=== PATIENT | male | born 1960 | race African-American/Black ===

== ENCOUNTER 2017-10-25 16:53 | Emergency (ER) | payer BC, OTHER ==
--- NOTE | 2017-10-25 19:24 | UC ---
Hip/Pelvis Pain - HPI Summary HPI Summary: 57 y/o male presents to the urgent car c/o Rt hip pain s/p twisting his hip while sleeping Wednesday night 10/23/2017. Pt reports he was turning and felt a muscle pulled on the lateral side of his hip. Pain is sharp, 7/10 with movement and 0/10 at rest. He has taken Ibuprofen PO 400mg to alleviate symptoms. He had a similar episode about a year ago and was Rx SOMA. He doesn't recall any heavy lifting or trauma. He denies fever, saddle anesthesia, lower back pain, urinary or fecal incontinence, SOB, chest pain, dizziness, abdominal pain, N/V/D , numbness and tingling over the lower extremity. When told about his elevated BP he states that is is on 4 HTN medication which he can't recall the names and hasn't taken them yet. He states he saw his PCP and he has been trying to control his BP. - History Of Current Complaint Hx Obtained From: Patient Onset/Duration: Gradual Onset, Lasting Days - 2 days, Still Present Timing: Intermittent Episodes Lasting: Severity Initially: Moderate Severity Currently: Moderate Pain Intensity: 7 Pain Scale Used: 0-10 Numeric Location: Discrete At: - lateral side of hip Character Of Pain: Aching, Spasmodic Alleviating Factor(s): Rest, OTC Medications Associated Signs And Symptoms: Positive: Negative. Negative: Swelling, Redness , Bruising, Fever, Dizziness, Syncope, Abdominal Pain Related History: Similar Episode/Dx As - muscle spasm - Risk Factors Septic Arthritis Risk Factor: Negative <Mei Covington - Last Filed: 10/27/17 13:32> <Laura Mcallister - Last Filed: 10/28/17 09:38> - History Of Current Complaint Chief Complaint: UCLowerExtremity Stated Complaint: RIGHT HIP PAIN Time Seen by Provider: 10/25/17 18:40 - Allergies/Home Medications Allergies/Adverse Reactions: Allergies Allergy/AdvReac Type Severity Reaction Status Date / Time bee sting Allergy Swelling Uncoded 10/25/17 17:35 cats, rabbits Allergy Sneezing Uncoded 10/25/17 17:35 Home Medications: Home Medications Amlodipine Besylate-Valsartan [Amlodipine Besylate/Valsa 5-160 mg-] 1 tab PO DAILY 10/25/17 [History Confirmed 10/25/17] Atenolol TAB* [Tenormin TAB* 50 MG] 100 mg PO DAILY 10/25/17 [History Confirmed 10/25/17] Atorvastatin* [Lipitor 20 MG*] 20 mg PO 1700 10/25/17 [History Confirmed ] Chlorthalidone TAB* [Hygroton TAB*] 25 mg PO DAILY 10/25/17 [History Confirmed 10/25/17] PMH/Surg Hx/FS Hx/Imm Hx Previously Healthy: Yes Endocrine History: Diabetes Cardiovascular History: Hypertension - Surgical History Surgical History: Yes Surgery Procedure, Year, and Place: Laser eye surgeries 04/24/14, 05/07/20142013 - Family History Known Family History: Positive: Hypertension, Diabetes - Social History Occupation: Disabled Lives: With Family Alcohol Use: None Substance Use Type: None Smoking Status (MU): Never Smoked Tobacco - Immunization History Most Recent Influenza Vaccination: current 2016/2017 <Mei Covington - Last Filed: 10/27/17 13:32> Review of Systems Constitutional: Negative Skin: Negative Eyes: Negative ENT: Negative Respiratory: Negative Cardiovascular: Negative Gastrointestinal: Negative Genitourinary: Negative Motor: Negative Neurovascular: Negative Musculoskeletal: Other: - RT hip pain Neurological: Negative Psychological: Negative Is Patient Immunocompromised?: No All Other Systems Reviewed And Are Negative: Yes <Mei Covington - Last Filed: 10/27/17 13:32> Physical Exam Triage Information Reviewed: Yes Appearance: Well-Appearing, No Pain Distress, Well-Nourished - male Vital Signs: Initial Vital Signs Temp 97.5 F 10/25/17 17:30 Pulse 94 10/25/17 17:30 Resp 18 10/25/17 17:30 BP 185/125 10/25/17 17:30 Pulse Ox 100 10/25/17 17:30 Vital Signs Reviewed: Yes Eyes: Positive: Conjunctiva Clear - left eye blindness ENT: Positive: Normal ENT inspection, Hearing grossly normal, Pharynx normal, TMs normal, Uvula midline Neck: Positive: Supple, Nontender, No Lymphadenopathy Respiratory: Positive: Chest non-tender, Lungs clear, Normal breath sounds, No respiratory distress Cardiovascular: Positive: RRR, No Murmur, Pulses Normal, Brisk Capillary Refill Abdomen Description: Positive: Nontender, No Organomegaly, Soft. Negative: CVA Tenderness (R), CVA Tenderness (L) Bowel Sounds: Positive: Present Musculoskeletal: Positive: Strength Intact, Other: - RT Hip: Pt is able to ambulate without difficulty or assistance, limp, or antalgic gait. No surface trauma, ecchymosis. No erythema, warmth. No deformity, crepitus, or obvious asymmetry of the RT hip. No Tenderness to palaption over the symphysis pubis, ischial bone, trochanter, SI notch, buttocks, quadriceps, femoral triangle, inguinal ligament. Point tenderness on Rt lateral side of the hip belowe the iliac crest. No inguinal lymphadenopathy. FROM limited due to pain. Distal motor and neurovascular status are intact. <Mei Covington - Last Filed: 10/27/17 13:32> Vital Signs: Initial Vital Signs Temp 97.5 F 10/25/17 17:30 Pulse 94 10/25/17 17:30 Resp 18 10/25/17 17:30 BP 185/125 10/25/17 17:30 Pulse Ox 100 10/25/17 17:30 <Laura Mcallister - Last Filed: 10/28/17 09:38> Hip Injury Course/Dx - Course Course Of Treatment: 57 y/o male presents to the urgent car c/o Rt hip pain s/ p twisting his hip while sleeping Wednesday night 10/23/2017. Pt reports he was turning and felt a muscle pulled on the lateral side of his hip. Pain is sharp, 7/10 with movement and 0/10 at rest. He has taken Ibuprofen PO 400mg to alleviate symptoms. He had a similar episode about a year ago and was Rx SOMA. He doesn't recall any heavy lifting or trauma. He denies fever, saddle anesthesia, lower back pain, urinary or fecal incontinence, SOB, chest pain, dizziness, abdominal pain, N/V/D. When told about his elevated BP he states that is is on 4 HTN medication which he can't recall the names and hasn't taken them yet. He states he saw his PCP and he has been trying to control his BP. Hx obtained. Pt with a musckuloskelat pain ans spasm on the lateral side of the RT hip. Pt Rx Prednisone, taper dose, Flexeril PO and tylenol PO to alleviate symptoms. Pt's BP is elevated. Pt is uncompliant with medications. Nurse called pharmacy to update HTN medication. Pt educated on HTN and its risks. Pt seems not to be concern w/ his elevated BP. He states it is usually like that.Pt advised to take his medications and to decrease salt in his diet, monitor BP and f/u with PCP for further management as soon as possible. Pt given Orthopedic referral if not improvement of symptoms in 2-3 days. Pt understood and agreed with D/C instructions. Pt left the clinic A&OX3 and hemodynamically stable. - Differential Dx/Diagnosis Differential Diagnosis/HQI/PQRI: Arthritis, Contusion, Fracture, Sciatica, Sprain, Strain Provider Diagnoses: 1- RT acute hip pain. 2-Muscle spasm. 3- Uncontrolled HTN <Mei Covington - Last Filed: 10/27/17 13:32> Discharge <Mei Covington - Last Filed: 10/27/17 13:32> <Laura Mcallister - Last Filed: 10/28/17 09:38> - Discharge Plan Condition: Stable Disposition: HOME Prescriptions: Acetaminophen TAB* [Tylenol TAB*] 325 mg PO Q6H PRN #30 tab PRN Reason: Pain Cyclobenzaprine TAB* [Flexeril 10 MG TAB*] 10 mg PO TID PRN #15 tab PRN Reason: Spasms - Muscle predniSONE TAB* [Deltasone TAB*] 20 mg PO DAILY #11 tab Patient Education Materials: Low-Sodium Diet (ED), Hypertension (ED), Hip Pain (ED) Referrals: [facility] [place] [facility] [place]] - 2 Days Miguel Arreaga MD [Medical Doctor] - 2 Days Additional Instructions: 1- Please take Tylenol PO q4-6hrs as directed after meals for pain. Take Prednisone PO as directed to decrease inflammation 2- Take Flexeril PO as directed for muscle spasm. Please do not drive while taking the medication. 3- Avoid strenuous exercise of heavy lifting. 4- Please follow up with Orthopedic Dr or your PCP in 2-3 days if not improvement of symptoms, for further management. 5- Your BP is extremely elevated today. please take your medication as soon as you get home, decrease salt in your diet, monitor BP and if it continues to be elevated please f/u with your PCP for further management. 6- If you feel dizziness, chest pain, Headache please go immediately to the Er for further management Attestation Statement User Type: Provider - I was available for consult. This patient was seen by the CHRISTIANO. The patient was not presented to, seen by, or examined by me. -Domi <Laura Mcallister - Last Filed: 10/28/17 09:38>
[2017-10-25 19:31] VITALS: BP 162/128
== END 2017-10-25 19:47 | disposition home or self-care (01) ==
LOC: UCCORT 16:53
DX: M25.551 Pain in right hip (principal); M62.838 Other muscle spasm; I10 Essential (primary) hypertension; E11.9 Type 2 diabetes mellitus without complications
CPT/HCPCS: 99202; G0463